=== PATIENT | female | born 1970 | race Hispanic/Latino ===

== ENCOUNTER 2024-03-17 12:52 | Day surgery (SDC) | payer OTHER ==
[~2024-03-17] VITALS: Ht 152.4 cm; Wt 84.3 kg
[~2024-03-17 12:52] MED LIST: DICYCLOMINE HCL20 MG PO; GAS-X80 MG PO; IBLOOD GLUCOSE TEST STRIP 1 EA TEST VI PRN; IMITREX25 MG PO; IRON160 MG PO; LACTATED RINGER'S 1,000 ML IV SCH; LIDOCAINE HCL 1% 5 ML SDV INJ ONE; LISINOPRIL10 MG PO; METFORMIN HCL1000 MG PO; MIDAZOLAM HCL 5 MG/5 ML VIAL IV PRN; NAPROXEN500 MG PO; NORCO 10-325 T1 EACH PO; NORCO 5-325 TA1 EACH PO; VICTOZA 2-0.6 MG/0.1 SUB-Q; VITAMIN D35000 UNI1 PO; ZOCOR10 MG PO; fentaNYL citrate 100 MCG/2 ML VIAL IV PRN
[2024-03-17 13:07] VITALS: BP 101/64
[2024-03-17] MEDS ORDERED: OMEPRAZOLE20 MG PO (13:10)
[2024-03-17] MEDS ORDERED: ALOGLIPTIN25 MG PO (13:11)
[2024-03-17] MEDS ORDERED: MIDAZOLAM HCL 5 MG/5 ML VIAL ONE (14:53)
[2024-03-17] MEDS ORDERED: fentaNYL citrate 100 MCG/2 ML VIAL ONE (14:54)
--- NOTE | 2024-03-17 15:41 | NUR ---
03/17/24 1541 Sheets,Eleanor 1534 PT ARRIVED TO PACU ON 3L VIA NC, PT WAKES TO TACTILE STIMULI AND DENIES CONCERNS. PT EASILY FALLS RIGHT BACK TO SLEEP. VSS.
[2024-03-17 17:01] VITALS: BP 113/68
--- NOTE | 2024-03-19 12:49 | OR ---
[facility] [address], [place] [address] Signed DATE OF OPERATION: 03/17/2024 SURGEON: Tamy Caicedo MD PREOPERATIVE DIAGNOSIS: History of polyps 2016 ([facility]). POSTOPERATIVE DIAGNOSES: 1. Submucosal lesion of rectum (excised). 2. Diverticulosis, sigmoid and left colon. PROCEDURE: Total colonoscopy to cecum with cold morcellation, excision of mucosal lesion of rectum. ANESTHESIA: Intravenous sedation; fentanyl 150 mcg, Versed 6 mg. INDICATION: This 53-year-old woman is a patient of MARVEL Ibarra. She underwent colonoscopy in the [facility] in 2016 and is reported to have had polyps at that time. She was recommended to have repeat colonoscopy in three years. Due to the pandemic, a delay was noted. She has no current symptoms of bleeding, diarrhea, or constipation, though she does have some abdominal bloating. She has had cholecystectomy in the past. She is admitted at this time to undergo colonoscopy to better characterize the possibility of recurrent or new polyps. She understands the risk of bleeding, infection, and perforation and wished to proceed. FINDINGS: The prep was good. Full and complete intubation of the cecum was accomplished. There were numerous diverticula of the sigmoid and left colon. There was a mucosal lesion which appeared to be benign and submucosal in the rectum, which was excised with cold morcellation technique. PROCEDURE IN DETAIL: The patient was brought to the endoscopy suite and placed in lateral decubitus position and given intravenous sedation to the point of slurred speech and nystagmus. Digital rectal examination was normal. An Olympus video colonoscope was passed in the rectum and manipulated throughout the colon noting numerous diverticula of the sigmoid and left colon. The scope was Electronically Signed By: TAMY CAICEDO MD 03/19/24 1249 PATIENT NAME: YOU ARRIOLA OPERATIVE REPORT DATE OF : 74 REPORT #: [id number] PHYSICIAN: TAMY CAICEDO MD PCP: GENIE LAWS REPORT IS CONFIDENTIAL AND NOT TO BE RELEASED WITHOUT AUTHORIZATION [facility] [address], [place] [address] Signed ultimately passed to the cecum and full intubation of the cecum was accomplished. The ileocecal valve and appendiceal orifice were normal. The scope was then withdrawn and examination undertaken showed scattered diverticula of the transverse colon, numerous diverticula of the left and sigmoid colon. In the rectum at approximately 10 cm, there was a submucosal lesion. Narrow-band imaging failed to show any mucosal abnormality. The area was multiply biopsied with cold morcellation technique. Withdrawal of the scope allowed for retroflexed view of the rectum, which was otherwise normal. Scope was removed and the patient was taken to the recovery room in good condition. CONCLUDING DIAGNOSES: 1. Extensive diverticulosis, sigmoid and left colon. 2. Submucosal lesion, rectum, excised. PLAN: Recommend repeat colonoscopy in 10 years, sooner if clinically indicated. Recommend high-fiber diet. She will return to the ongoing care of MARVEL Ibarra. MD JC Tate/TIERRA /[id number] cc: MARVEL Ibarra. Copies: ~ Electronically Signed By: TAMY CAICEDO MD 03/19/24 1249 PATIENT NAME: YOU ARRIOLA OPERATIVE REPORT DATE OF : 74 REPORT #: [id number] PHYSICIAN: TAMY CAICEDO MD PCP: GENIE LAWS REPORT IS CONFIDENTIAL AND NOT TO BE RELEASED WITHOUT AUTHORIZATION
--- NOTE | 2024-03-21 18:10 | PATH ---
[facility] [address] [facility] [place] [address] Signed SPECIMEN(S): A RECTUM BIOPSY SPECIMEN SOURCE: A. RECTUM BIOPSY CLINICAL HISTORY: History of polyps. FINAL PATHOLOGIC DIAGNOSIS: Rectum biopsy: - Colonic mucosa with no significant pathologic abnormalities. MICROSCOPIC EXAMINATION: Histologic sections of all submitted blocks are examined by light microscopy. These findings, together with the gross examination, support the pathologic diagnosis. GROSS DESCRIPTION: The specimen, labeled and designated "Jemma Baker, rectum biopsy," is received in formalin and consists of four gerber soft tissue fragments, ranging from 0.2-0.4 cm. Entirely submitted in (A1). HS (under the direct supervision of a pathologist) The Gross Description was prepared using a voice recognition system. The report was reviewed for accuracy; however, sound-alike word errors, addition and/or deletions may occur. If there is any question about this report, please contact Client Services. ADDITIONAL NOTES: Immunohistochemical and/or in situ hybridization studies if performed in this case included appropriate positive controls that reacted as expected. This test was developed and its performance characteristics determined by [email or web address]. It has not been cleared or approved by the U.S. Food and Drug Administration. The FDA has determined that such clearance or approval is not necessary. This test is used for clinical purposes. It should not be regarded as investigational or for research. [email or web address] is certified under the Clinical Laboratory Improvement Amendments of 1988 (CLIA) as qualified to perform high complexity clinical laboratory testing. PERFORMING LABORATORY: PATIENT NAME: YOU BAKER PATHOLOGY DATE OF : 74 REPORT #: [id number] PHYSICIAN: TIUMR ZENG PCP: GENIE LAWS REPORT IS CONFIDENTIAL AND NOT TO BE RELEASED WITHOUT AUTHORIZATION [facility] [address] [place], [place] [address] Signed Technical component was performed by [email or web address], [address] [place] [address] (CLIA# [id number]). Diagnostician: Kirill Pierre MD Pathologist Electronically Signed 03/21/2024 Copies: ~ PATIENT NAME: YOU BAKER PATHOLOGY DATE OF : 74 REPORT #: [id number] PHYSICIAN: TIMUR ZENG PCP: GENIE LAWS REPORT IS CONFIDENTIAL AND NOT TO BE RELEASED WITHOUT AUTHORIZATION
== END 2024-03-17 17:00 | disposition home or self-care (01) ==
LOC: OPS 12:52 → DS 13:45 → OPS 17:00
PROVIDERS: ATTEND Surgery
PROC: 0DBE8ZX Excision of Large Intestine, Via Natural or Artificial Opening Endoscopic, Diagnostic (ICD-10-PCS; principal; 2024-03-17 13:45)
DX: Z12.11 Encounter for screening for malignant neoplasm of colon (principal); K62.1 Rectal polyp; K57.30 Diverticulosis of large intestine without perforation or abscess without bleeding; Z86.010 Personal history of colon polyps; R14.0 Abdominal distension (gaseous); I10 Essential (primary) hypertension; E11.9 Type 2 diabetes mellitus without complications; Z90.49 Acquired absence of other specified parts of digestive tract; Z86.19 Personal history of other infectious and parasitic diseases; Z90.711 Acquired absence of uterus with remaining cervical stump; Z79.899 Other long term (current) drug therapy
CPT/HCPCS: 99153; G0500; J2250; J3010; J7121